=== PATIENT | female | born 2000 | race Caucasian/White ===

== ENCOUNTER 2018-07-19 10:16 | Emergency (ER) | payer BC ==
[2018-07-19 11:24] VITALS: BP 119/74
--- NOTE | 2018-07-19 12:29 | UC ---
FLU HPI - HPI Summary HPI Summary: Pt presents c/o sudden onset of ST, PND, body aches, nasal congestion and cough X 1 day. Pt is a college student at [employer] - History of Current Complaint Chief Complaint: UCRespiratory Stated Complaint: ST,FEVER,BODY ACHES,CHILLS,NAUSEA Time Seen by Provider: 07/19/18 12:19 Hx Obtained From: Patient Hx Last Menstrual Period: 06/25/18 ?: No Onset/Duration: Sudden Onset, Lasting Days, Still Present Severity Currently: Mild Severity Initially: Moderate Pain Intensity: 6 Associated Signs & Symptoms: Positive: Myalgia, Cough, Sore Throat, Nasal Congestion Related Hx: Possible Flu/Infectious Exposure - Risk Factors Influenza Risk Factors: Negative - Allergy/Home Medications Allergies/Adverse Reactions: Allergies Allergy/AdvReac Type Severity Reaction Status Date / Time cefdinir [From Omnicef] Allergy Rash Verified 07/19/18 11:20 Penicillins Allergy Rash Verified 07/19/18 11:20 Home Medications: Home Medications Acetaminophen TAB* [Tylenol TAB*] 650 mg PO Q4H PRN 07/19/18 [History Confirmed 07/19/18] Ethinyl Estradiol/Drospirenone [Gianvi 3-0.02 mg] 1 tab PO DAILY 07/19/18 [ History Confirmed 07/19/18] PMH/Surg Hx/FS Hx/Imm Hx Previously Healthy: Yes - Surgical History Surgical History: Yes Surgery Procedure, Year, and Place: Tonsillectomy - Family History Known Family History: Positive: Cardiac Disease - Social History Occupation: Student Lives: Dormitory/Roommates Alcohol Use: None Substance Use Type: None Smoking Status (MU): Never Smoked Tobacco Have You Smoked in the Last Year: No - Immunization History Vaccination Up to Date: Yes Review of Systems All Other Systems Reviewed And Are Negative: Yes Constitutional: Positive: Fever - subjective, Chills, Fatigue Skin: Positive: Negative Eyes: Positive: Negative ENT: Positive: Sore Throat Respiratory: Positive: Cough Cardiovascular: Positive: Negative Gastrointestinal: Positive: Negative Genitourinary: Positive: Negative Motor: Positive: Negative Neurovascular: Positive: Negative Musculoskeletal: Positive: Myalgia Neurological: Positive: Negative Psychological: Positive: Negative Is Patient Immunocompromised?: No Physical Exam Triage Information Reviewed: Yes Appearance: Well-Appearing Vital Signs: Initial Vital Signs Temp 97.8 F 07/19/18 11:21 Pulse 111 07/19/18 11:21 Resp 16 07/19/18 11:21 BP 119/74 07/19/18 11:21 Pulse Ox 100 07/19/18 11:21 Vital Signs Reviewed: Yes Eye Exam: Normal ENT: Positive: Nasal congestion Dental Exam: Normal Neck exam: Normal Respiratory Exam: Normal Cardiovascular Exam: Normal Musculoskeletal Exam: Normal Neurological Exam: Normal Psychological Exam: Normal Skin Exam: Normal Flu Course/Dx - Differential Dx/Diagnosis Differential Diagnosis/HQI/PQRI: Influenza, Upper Respiratory Infection Provider Diagnosis: Viral syndrome Discharge - Sign-Out/Discharge Documenting (check all that apply): Patient Departure All imaging exams completed and their final reports reviewed: No Studies - Discharge Plan Condition: Stable Disposition: HOME Patient Education Materials: Viral Syndrome (ED) Referrals: [facility] [Outside] - If Needed No Primary Care Phys,NOPCP [Primary Care Provider] - - Billing Disposition and Condition Condition: STABLE Disposition: Home
[2018-07-19 12:47] LABS: Influenza A Molecular NEGATIVE (Negative); Influenza B Molecular NEGATIVE (Negative)
== END 2018-07-19 13:09 | disposition home or self-care (01) ==
LOC: UCCORT 10:16
DX: B34.9 Viral infection, unspecified (principal); R05 Cough; R09.81 Nasal congestion; R09.82 Postnasal drip; M79.10 Myalgia, unspecified site; J02.9 Acute pharyngitis, unspecified; Z88.1 Allergy status to other antibiotic agents; Z88.0 Allergy status to penicillin
CPT/HCPCS: 87651; 99201; G0463